=== PATIENT | male | born 1945 | race Caucasian/White ===

== ENCOUNTER 2025-08-27 11:28 | Emergency (ER) | payer MEDICARE, SELFPAY ==
[2025-08-27 11:30] VITALS: BP 162/82
--- NOTE | 2025-08-27 12:38 | ED.GENMED ---
History of Present Illness
General
Chief Complaint: DVT/Possible Blood Clot
Time Seen by Provider: 08/27/25 11:53
History of Present Illness
History of Present Illness:
80-year-old male presents to the emergency department for evaluation of sudden onset of left calf pain that began 2 days ago while walking. He has chronic lymphedema and wears compression stockings, has never had pain to this degree. Denies any
trauma to the area. He is able to ambulate steadily. Denies any chest pain or shortness of breath
Review of Systems
Review of Systems
Allergies reviewed?: Yes
All Other Systems: ROS reviewed and negative except as documented in HPI and ROS
Phy Exam
Physical Exam
Physical Exam:
GEN: Well appearing, NAD, WDWN
HEENT: Oral mucosa moist, no scleral icterus
Cardiac: Regular rate
Lung: No respiratory distress, no tachypnea
MSK: Diffuse bilateral lower extremity edema, there is tenderness to the body of the left calf with soft compartments x 4, no pain with passive stretch
Skin: Good color, no pallor or jaundice, no rashes
Neuro: AO x3, moves all extremities freely
Psych: Calm, cooperative
Course
Orders/Labs/Results
Orders:
Orders
08/27/25 11:33
Periph Venous Lwr Ext Left US [US Periph Venous LOWER Ext LT] Urgent
Comment:
Reason For Exam: calf pain
Vital Signs
Initial and Last Documented VS:
Initial Vital Signs
Temp Pulse Resp BP Pulse Ox
98.4 F 69 18 162/82 97
08/27/25 11:30 08/27/25 11:30 08/27/25 11:30 08/27/25 11:30 08/27/25 11:30
Last Documented Vital Signs
Temp Pulse Resp BP Pulse Ox
98.4 F 69 18 162/82 97
08/27/25 11:30 08/27/25 11:30 08/27/25 11:30 08/27/25 11:30 08/27/25 12:38
MDM/Problems Addressed
MDM/Problems Addressed:
Ultrasound reveals a occlusive thrombus in the superficial saphenous vein no deep vein thrombosis identified. Educated patient regarding the typical progression of the symptoms recommend full dose aspirin and warm compresses
*Pulse Oximetry
SaO2: 97
Oxygen Mode of Delivery: Room air
Patient hypoxic: no
*Critical Care Note
Total Time (30-74mins, 75-104mins- exclusive of procedures): Not Applicable
ED Attending Note
-
Portions of this chart may have been created with voice recognition software.� Occasional wrong word or��sound alike� substitutions may have occurred due to the inherent limitations of voice recognition software.
Discharge Plan
Departure
Patient Disposition: Home (Routine Discharge)
Date of Disposition: 08/27/25
Time of Disposition: 13:18
Patient with high blood pressure during this ER visit?: No
Discharge Problem:
Phlebitis of left saphenous vein
Instructions: Superficial vein phlebitis and thrombosis
Referrals:
Reynaldo Ledezma MD [Family Provider, Family Practice]
Activity Restrictions/Additional Instructions:
Take full dose aspirin (325mg) daily for 10-14 days
Elevate and compress the leg
Follow up with your primary doctor if symptoms progress
Interventions
Interventions:
*Risk Screen - Suicide Last Done: 08/27/25 11:30
*General Assessment Last Done: 08/27/25 11:30
*Neglect/Abuse Screening Last Done: 08/27/25 12:35
*ED- Fall Risk Assessment Last Done: 08/27/25 12:35
*ED COVID-19 Vaccine History Last Done: 08/27/25 12:35
*ED Influenza Vaccine History Last Done: 08/27/25 12:35
*Nursing Disposition Last Done: 08/27/25 13:29
ED-Peripheral Vascular Assessment Last Done: 08/27/25 12:10
ED-Skin Assessment Last Done: 08/27/25 12:35
Discharge Date and Time
Discharge Date/Time: 08/27/25 13:31
Print Language: PANAMANIAN
== END 2025-08-27 13:31 | disposition home or self-care (01) ==
LOC: EMR 11:28
PROVIDERS: EMERGENCY PHYSICIAN Emergency Medicine; FAMILY PHYSICIAN Family Medicine
DX: I80.02 Phlebitis and thrombophlebitis of superficial vessels of left lower extremity (principal); I89.0 Lymphedema, not elsewhere classified
CPT/HCPCS: 99284; 93971